=== PATIENT | male | born 1985 | race Two or more races ===

== ENCOUNTER 2024-03-19 06:58 | Emergency (ER) | payer SELFPAY ==
[~2024-03-19] VITALS: Ht 167.6 cm; Wt 79.5 kg
[2024-03-19] MEDS ORDERED: KETOROLAC TROMETH 30 MG/ML 1ML VIAL IV ONE (07:45)
[2024-03-19] MEDS ORDERED: diphenhdrAMINE HCL 50 MG/1 ML VL IV ONE (07:45)
[2024-03-19] MEDS ORDERED: DexAMETHasone SOD PHOS 10MG/1ML VIAL INJ IV ONE (07:45)
[2024-03-19] MEDS ORDERED: LORazepam 2MG/ML-1ML VIAL IV ONE (08:15)
[2024-03-19] MEDS: LORazepam 2MG/ML-1ML VIAL IM ONE (08:21)
[2024-03-19] MEDS: HYDROcodone-ACET 5/325MG TAB PO ONE (08:22)
[2024-03-19 08:25] LABS: Basophils % (auto) 0.5 % (0.0-2.0); Eosinophils # (auto) 0.3 10 ^3/uL (0-0.8); Hemoglobin 15.4 g/dL (13.5-17.5); Lymphocytes # (auto) 2.1 10 ^3/uL (0.4-5.4); Mean Corpuscular Hemoglobin 34.2 pg (28.0-32.0); Monocytes # (auto) 0.8 10 ^3/uL (0-1.3)
[2024-03-19 08:27] LABS: Basophils # (auto) 0.1 10 ^3/uL (0-0.2); Eosinophils % (auto) 3.7 % (0.0-7.0); Mean Corpuscular Volume 97.5 fL (80.0-100.0); Neutrophils # (auto) 5.9 10 ^3/uL (1.6-8.6); Neutrophils % (auto) 63.8 % (37.0-80.0); Platelet Count (auto) 284 10^3/uL (140-450); Red Blood Cells 4.51 10^6/uL (4.5-5.90); Red Cell Distribution Width 13.1 % (11.8-14.3); White Blood Cell 9.2 10^3/uL (4.4-10.8)
[2024-03-19 08:32] LABS: Chloride 109 mmol/L (98-107); Potassium 3.9 mmol/L (3.5-5.1); Sodium 141 mmol/L (136-145)
[2024-03-19 08:33] LABS: Anion Gap 4 (5-15); Calcium 9.4 mg/dL (8.7-10.4); Carbon Dioxide 28 mmol/L (20-30)
[2024-03-19 08:38] LABS: BUN/Creatinine Ratio 12.4 (10.0-20.0); Blood Urea Nitrogen 11 mg/dL (9-23); Glucose 97 mg/dL (74-106)
[2024-03-19 09:53] LABS: COVID19 ANTIGEN SOFIA FIA NEGATIVE (NEGATIVE)
[2024-03-19 09:54] LABS: Rapid Influenza A Negative (Negative); Rapid Influenza B Negative (Negative)
[2024-03-19] MEDS: SODIUM CHLORIDE 0.9% 1,000 ML IV ONE (10:15)
[2024-03-19] MEDS ORDERED: HYDR50TA32 PO (10:17)
[2024-03-19] MEDS ORDERED: IBUP-1455 PO (10:17)
[2024-03-19 10:23] VITALS: PULSE 114; RESP 18; TEMP 97.5; O2SAT 98
== END 2024-03-19 11:32 | disposition admitted as inpatient to this hospital (09) ==
LOC: EDBD 06:58 → ER 06:58
DX: F15.10 Other stimulant abuse, uncomplicated (principal); T40.715A Adverse effect of cannabis, initial encounter; Z79.1 Long term (current) use of non-steroidal anti-inflammatories (NSAID); Z20.822 Contact with and (suspected) exposure to COVID-19; Y92.89 Other specified places as the place of occurrence of the external cause
CPT/HCPCS: 36415; 80048; 85025; 87426; 87804; 96360; 96372; 99283; J2060; J7030